=== PATIENT | male | born 1995 | race Caucasian/White ===

== ENCOUNTER 2017-03-22 01:14 | Emergency (ER) | payer SELFPAY ==
[2017-03-22] MEDS ORDERED: diphenhydrAMINE 50 MG/ML SDV IVPUSH ONE (01:21)
[2017-03-22] MEDS ORDERED: EPINEPHrine 1 MG/ML SDV IM ONE (01:21)
[2017-03-22] MEDS ORDERED: methylPREDNISolone Sodium Succinate 125 MG/2 ML SDV IVPUSH ONE (01:22)
[2017-03-22] MEDS: Sodium Chloride 0.9% 10 ML Syringe FLUSH PRN ×3 (01:36→01:41)
--- NOTE | 2017-03-22 01:40 | EDM.PDOC ---
ED HPI GENERAL MEDICAL PROBLEM - General Chief Complaint: Allergic Reaction Stated Complaint: REACTION Time Seen by Provider: 03/22/17 01:16 Source of Information: Reports: Patient, RN Notes Reviewed History Limitations: Reports: No Limitations - History of Present Illness INITIAL COMMENTS - FREE TEXT/NARRATIVE: Brought in by sister Chief complaint Facial swelling and itching, allergic reaction History of present illness 21-year-old male had sudden onset of itchy skin swelling of the face shortly after eating daily fruit, for the first time over half an hour prior to arrival. Mild cough, no shortness of breath no chest pain Itching of the skin especially near the axilla. Swelling of the face Not short of breath no fever no abdominal pain No recent illness or infection. - Related Data Allergies Allergy/AdvReac Type Severity Reaction Status Date / Time cantaloupe Allergy Swelling Uncoded 03/22/17 01:24 Home Meds: Home Meds Prednisone [IJD: predniSONE] 20 mg PO BID #10 tab 03/22/17 [Rx] Past Medical History Respiratory History: Reports: Asthma, Pneumothorax Gastrointestinal History: Reports: Other (See Below) Other Gastrointestinal History: Bleeding ulcer. bruised liver Musculoskeletal History: Reports: Fracture, Other (See Below) Other Musculoskeletal History: acl tear. ribs Neurological History: Reports: Seizure Psychiatric History: Reports: Anxiety, Depression, Learning Disability - Infectious Disease History Infectious Disease History: Reports: Chicken Pox - Past Surgical History Musculoskeletal Surgical History: Reports: Arthroscopic Knee Social & Family History - Tobacco Use Years of Tobacco use: 5 Used Tobacco, but Quit: No Second Hand Smoke Exposure: No - Alcohol Use Days Per Week of Alcohol Use: 0 - Recreational Drug Use Recreational Drug Use: No ED ROS ALLERGIC REACTION - Review of Systems Review Of Systems: See Below Constitutional: Reports: Malaise. Denies: Fever, Chills, Diaphoresis HEENT: Reports: No Symptoms Respiratory: Reports: No Symptoms Cardiovascular: Reports: No Symptoms Endocrine: Reports: No Symptoms GI/Abdominal: Reports: No Symptoms : Reports: No Symptoms Musculoskeletal: Reports: No Symptoms Skin: Reports: Urticaria (Hives of the trunk, scattered), Other (Facial edema cheeks and eyelids) Neurological: Reports: No Symptoms Psychiatric: Reports: No Symptoms Hematologic/Lymphatic: Reports: No Symptoms Immunologic: Reports: Food Allergy, Other (Swelling of the eyelids oriented chin with edema) ED EXAM GENERAL NO PERIP PULSE - Physical Exam Exam: See Below Exam Limited By: No Limitations General Appearance: Alert, Anxious, Mild Distress Eye Exam: Bilateral Eye: Abnormal EOM, Abnormal Pupil, EOMI, Normal Inspection Ears: Normal External Exam, Normal Canal, Hearing Grossly Normal, Normal TMs Nose: Normal Inspection, Normal Mucosa Throat/Mouth: Normal Inspection, Normal Lips, Normal Oropharynx, Normal Voice Head: Atraumatic Neck: Normal Inspection, Supple, Non-Tender Respiratory/Chest: No Respiratory Distress, Lungs Clear Cardiovascular: Normal Peripheral Pulses, Regular Rate, Rhythm GI/Abdominal: Normal Bowel Sounds, Soft, Non-Tender, No Organomegaly Back Exam: Normal Inspection Extremities: Normal Inspection, Normal Range of Motion, Non-Tender Neurological: Alert, Oriented, No Motor/Sensory Deficits Psychiatric: Normal Affect, Normal Mood Skin Exam: Warm, Dry, Normal Color, Other (A few scattered urticaria on the trunk) Course - Vital Signs Last Recorded V/S: Last Vital Signs Temp 36.3 C 03/22/17 01:18 Pulse 62 03/22/17 01:37 Resp 16 03/22/17 01:37 BP 108/64 03/22/17 01:37 Pulse Ox 98 03/22/17 01:37 - Orders/Labs/Meds Orders: Active Orders 24 hr Category Date Time Status Sodium Chloride 0.9% [Saline Flush] Med 03/22/17 01:21 Active 10 ml FLUSH ASDIRECTED PRN Saline Lock Insert [OM.PC] Stat Oth 03/22/17 01:21 Ordered Medication Orders Sodium Chloride (Saline Flush) 10 ml FLUSH ASDIRECTED PRN PRN Reason: Keep Vein Open Last Admin: 03/22/17 01:41 Dose: 10 ml Admin: 03/22/17 01:39 Dose: 10 ml Admin: 03/22/17 01:36 Dose: 10 ml Meds: Medications Generic Name Dose Route Start Last Admin Trade Name Freq PRN Reason Stop Dose Admin Sodium Chloride 10 ml 03/22/17 01:21 03/22/17 01:41 Saline Flush FLUSH 10 ml ASDIRECTED PRN Administration Keep Vein Open Discontinued Medications Generic Name Dose Route Start Last Admin Trade Name Freq PRN Reason Stop Dose Admin Diphenhydramine HCl 50 mg 03/22/17 01:21 03/22/17 01:38 Benadryl IVPUSH 03/22/17 01:22 50 mg ONETIME ONE Administration Epinephrine HCl 0.3 mg 03/22/17 01:21 03/22/17 01:37 Adrenalin 1:1000 IM 03/22/17 01:22 0.3 mg ONETIME ONE Administration Methylprednisolone Sodium Succinate 125 mg 03/22/17 01:22 03/22/17 01:40 Solu-Medrol IVPUSH 03/22/17 01:23 125 mg ONETIME ONE Administration - Re-Assessments/Exams Free Text/Narrative Re-Assessment/Exam: 03/22/17 01:40 21-year-old male with fairly sudden onset of facial swelling itching and rash half hour after eating kiwi at home Epinephrine 0.3 mg IM Saline lock, Benadryl 50 mg IV and Solu-Medrol 125 mg IV 03/22/17 02:43 02.30 Much improved, decreased swelling and itching has resolved Prednisone 20 mg twice a day for 5 days Loratadine 10 mg daily for 5 days and Benadryl/diphenhydramine 50 mg 4 times a day when necessary Return if worsening, see instructions below Departure - Departure Time of Disposition: 02:37 Disposition: Home, Self-Care 01 Condition: Good Clinical Impression: Acute allergic reaction Qualifiers: Encounter type: initial encounter Qualified Code(s): T78.40XA - Allergy, unspecified, initial encounter - Discharge Information Prescriptions: Prednisone [IJD: predniSONE] 20 mg PO BID #10 tab Instructions: Allergies Referrals: PCP,None [Primary Care Provider] - Forms: ED Department Discharge Additional Instructions: Allergic reaction to kiwi fruit Avoid consuming this route in the future In addition to prednisone which is prescribed, it is also recommended that you take loratadine/Claritin 10 mg once daily for 5 days and in addition Benadryl 50 mg up to 4 times daily as needed for itching or rash. Return to emergency if you have shortness of breath, wheezing, fever, vomiting or bad abdominal pain, trouble speaking or difficulty swallowing. - My Orders Last 24 Hours: My Active Orders 03/22/17 01:21 Sodium Chloride 0.9% [Saline Flush] 10 ml FLUSH ASDIRECTED PRN Saline Lock Insert [OM.PC] Stat - Assessment/Plan Last 24 Hours: My Active Orders 03/22/17 01:21 Sodium Chloride 0.9% [Saline Flush] 10 ml FLUSH ASDIRECTED PRN Saline Lock Insert [OM.PC] Stat
== END 2017-03-22 02:53 | disposition home or self-care (01) ==
LOC: JP.ED 01:14
DX: T78.1XXA Other adverse food reactions, not elsewhere classified, initial encounter (principal); L29.9 Pruritus, unspecified; X58.XXXA Exposure to other specified factors, initial encounter; Z91.018 Allergy to other foods
CPT/HCPCS: 96372; 96374; 96375; 99283; J0171; J1200; J2930; J7050

== ENCOUNTER 2018-10-09 09:07 | Emergency (ER) | payer MEDICAID ==
[2018-10-09] MEDS ORDERED: Ondansetron 4 MG/2 ML SDV IVPUSH ONE (09:39)
[2018-10-09] MEDS ORDERED: Ketorolac 30 MG/ML SDV IVPUSH ONE (09:39)
--- NOTE | 2018-10-09 09:43 | EDM.PDOC ---
ED HPI GENERAL MEDICAL PROBLEM - General Chief Complaint: Drug or Alcohol Abuse Stated Complaint: VOMITING, AND KIDNEY PAIN Time Seen by Provider: 10/09/18 09:30 Source of Information: Reports: Patient, Family History Limitations: Reports: No Limitations - History of Present Illness INITIAL COMMENTS - FREE TEXT/NARRATIVE: 22-year-old male was up fairly late last night at the bar drinking shots of hard liquor, started vomiting at 3 AM. For the last 6 hours he's had steady emesis, no hematemesis but he has developed back pain and weakness. He feels awful. No fevers or chills. He's also now developed "kidney pain" bilaterally with spasms and pain in his back. He is able to ambulate without difficulty. He was also recently doing "other drugs". Onset: Unknown/Unsure Associated Symptoms: Reports: Chest Pain (Has had some right-sided chest discomfort for the last 3 days), Loss of Appetite, Malaise, Nausea/Vomiting, Weakness. Denies: Confusion, Fever/Chills, Shortness of Breath Bilateral Flank Pain Score (Numeric/FACES): 8 - Related Data Allergies Allergy/AdvReac Type Severity Reaction Status Date / Time kiwi Allergy Swollen Verified 03/22/17 02:48 Eyes cantaloupe Allergy Swelling Uncoded 03/22/17 01:24 Home Meds: Home Meds NK [No Known Home Meds] 10/09/18 [History] Past Medical History Respiratory History: Reports: Asthma, Pneumothorax Gastrointestinal History: Reports: Other (See Below) Other Gastrointestinal History: Bleeding ulcer. bruised liver laceration Musculoskeletal History: Reports: Fracture, Other (See Below) Other Musculoskeletal History: acl tear. ribs Neurological History: Reports: Seizure Psychiatric History: Reports: Anxiety, Depression, Learning Disability - Infectious Disease History Infectious Disease History: Reports: Chicken Pox - Past Surgical History Musculoskeletal Surgical History: Reports: Arthroscopic Knee Social & Family History - Tobacco Use Years of Tobacco use: 10 Packs/Tins Daily: 1 - Caffeine Use Caffeine Use: Reports: Energy Drinks - Alcohol Use Days Per Week of Alcohol Use: 7 Number of Drinks Per Day: 2 Total Drinks Per Week: 14 - Recreational Drug Use Recreational Drug Use: No ED ROS GENERAL - Review of Systems Review Of Systems: See Below Constitutional: Reports: Malaise, Decreased Appetite. Denies: Fever, Chills HEENT: Reports: No Symptoms Respiratory: Denies: Shortness of Breath Cardiovascular: Reports: Chest Pain (Right-sided, intermittent) GI/Abdominal: Reports: Nausea, Vomiting. Denies: Abdominal Pain Skin: Reports: No Symptoms Neurological: Reports: Headache ED EXAM, GENERAL - Physical Exam Exam: See Below Exam Limited By: No Limitations General Appearance: Alert, No Apparent Distress (Looks ill but not distressed) Eye Exam: Bilateral Eye: Normal Inspection (No jaundice) Head: Atraumatic Respiratory/Chest: No Respiratory Distress, Lungs Clear Cardiovascular: Regular Rate, Rhythm. No: Tachycardia GI/Abdominal: Non-Tender (No significant palpation tenderness or distention), Abnormal Bowel Sounds (Bowel sounds are hypoactive) Extremities: Normal Inspection Neurological: Alert, Oriented Psychiatric: Flat Affect Skin Exam: Warm, Dry Course - Vital Signs Last Recorded V/S: Last Vital Signs Temp 98.9 F 10/09/18 09:28 Pulse 94 10/09/18 09:28 Resp 16 10/09/18 09:28 BP 141/94 H 10/09/18 09:28 Pulse Ox 97 10/09/18 09:28 - Orders/Labs/Meds Labs: Laboratory Tests 10/09/18 10/09/18 10/09/18 Range/Units 09:48 09:48 09:48 WBC 9.6 (4.5-11.0) K/uL RBC 5.24 (4.30-5.90) M/uL Hgb 16.5 H (12.0-15.0) g/dL Hct 46.7 (40.0-54.0) % MCV 89 (80-98) fL MCH 32 H (27-31) pg MCHC 35 (32-36) % Plt Count 256 (150-400) K/uL Neut % (Auto) 82 H (36-66) % Lymph % (Auto) 2 L (24-44) % [place] % (Auto) 16 H (2-6) % Eos % (Auto) 0 L (2-4) % Baso % (Auto) 0 (0-1) % Sodium 141 (140-148) mmol/L Potassium 3.8 (3.6-5.2) mmol/L Chloride 103 (100-108) mmol/L Carbon Dioxide 25 (21-32) mmol/L Anion Gap 12.7 (5.0-14.0) mmol/L BUN 16 (7-18) mg/dL Creatinine 0.9 (0.8-1.3) mg/dL Est Cr Clr Drug Dosing 128.74 mL/min Estimated GFR (MDRD) > 60 (>60) Glucose 152 H (74-106) mg/dL Calcium 9.0 (8.5-10.1) mg/dL Ethyl Alcohol < 3 mg/dL Meds: Medications Discontinued Medications Generic Name Dose Route Start Last Admin Trade Name Castro PRN Reason Stop Dose Admin Sodium Chloride 1,000 mls @ 1,999 mls/hr 10/09/18 09:45 10/09/18 09:42 Normal Saline IV 1,999 mls/hr ASDIRECTED SHERLY Administration Ketorolac Tromethamine 30 mg 10/09/18 09:39 10/09/18 09:47 Toradol IVPUSH 10/09/18 09:40 30 mg ONETIME ONE Administration Ondansetron HCl 4 mg 10/09/18 09:39 10/09/18 09:46 Zofran IVPUSH 10/09/18 09:40 4 mg ONETIME ONE Administration - Re-Assessments/Exams Free Text/Narrative Re-Assessment/Exam: 10/09/18 09:43 An IV was placed and the patient will be given 1 L of normal saline bolus along with 4 mg of IV Zofran and 30 of Toradol. CBC BMP and EtOH UA and urine drug screen will be obtained. The patient was unable to urinate. 10/09/18 11:27 After the medications the patient rested quietly while getting his IV fluids. CBC and BMP returned normal, EtOH was 0. He was still unable to give us a urine but it was discontinued because it wasn't necessary. Departure - Departure Time of Disposition: 12:23 Disposition: Home, Self-Care 01 Clinical Impression: Dehydration, mild Nausea & vomiting Qualifiers: Vomiting type: unspecified Vomiting Intractability: non-intractable Qualified Code(s): R11.2 - Nausea with vomiting, unspecified - Discharge Information Instructions: Dehydration, Adult, [id number] Referrals: PCP,None [Primary Care Provider] - Forms: ED Department Discharge Care Plan Goals: Rest, continue with fluids and increase activity and diet as tolerated.
[2018-10-09] MEDS ORDERED: Sodium Chloride 0.9% 1,000 ML IV SCH (09:45)
== END 2018-10-09 12:10 | disposition home or self-care (01) ==
LOC: JP.ED 09:07
DX: E86.0 Dehydration (principal); R11.2 Nausea with vomiting, unspecified; R07.9 Chest pain, unspecified; Z91.018 Allergy to other foods
CPT/HCPCS: 36415; 80048; 85025; 96374; 96375; 99284; G0480; J1885; J2405; J7030

== ENCOUNTER 2018-11-25 03:09 | Emergency (ER) | payer MEDICAID ==
[2018-11-25] MEDS: Sodium Chloride 0.9% 10 ML Syringe FLUSH PRN ×2 (04:33→06:05)
[2018-11-25] MEDS ORDERED: Sodium Chloride 0.9% 1,000 ML IV ONE ×2 (05:58→10:34)
--- NOTE | 2018-11-25 08:10 | EDM.PDOC ---
<Robbie Contreras - Last Filed: 11/25/18 08:05> ED HPI GENERAL MEDICAL PROBLEM - General Chief Complaint: General Stated Complaint: SEIZURE Time Seen by Provider: 11/25/18 03:50 Source of Information: Reports: Family History Limitations: Reports: Intoxication - History of Present Illness INITIAL COMMENTS - FREE TEXT/NARRATIVE: This young man arrived by EMS for possibly a seizure versus drug overdose. Mom found him down stairs lying on the floor unresponsive. At one time she said she seemed like he was shaking a little bit. He's had seizures in the past but has never been on any kind of medication for them. He is known he has been drinking and is known to use. Is different drugs.. - Related Data Allergies Allergy/AdvReac Type Severity Reaction Status Date / Time kiwi Allergy Swollen Verified 03/22/17 02:48 Eyes cantaloupe Allergy Swelling Uncoded 03/22/17 01:24 Home Meds: Home Meds NK [No Known Home Meds] 10/09/18 [History] Past Medical History Respiratory History: Reports: Asthma, Pneumothorax Gastrointestinal History: Reports: Other (See Below) Other Gastrointestinal History: Bleeding ulcer. bruised liver laceration Musculoskeletal History: Reports: Fracture, Other (See Below) Other Musculoskeletal History: acl tear. ribs Neurological History: Reports: Seizure Psychiatric History: Reports: Anxiety, Depression, Learning Disability - Infectious Disease History Infectious Disease History: Reports: Chicken Pox - Past Surgical History Musculoskeletal Surgical History: Reports: Arthroscopic Knee Social & Family History - Family History Family Medical History: Noncontributory - Tobacco Use Smoking Status *Q: Current Every Day Smoker Years of Tobacco use: 7 Packs/Tins Daily: 1 - Caffeine Use Caffeine Use: Reports: None - Alcohol Use Days Per Week of Alcohol Use: 7 Number of Drinks Per Day: 0 Total Drinks Per Week: 0 - Recreational Drug Use Recreational Drug Use: Yes Drug Use in Last 12 Months: Yes Recreational Drug Type: Reports: Marijuana/Hashish Recreational Drug Use Frequency: Daily ED ROS GENERAL - Review of Systems Review Of Systems: Unable To Obtain ED EXAM, GENERAL - Physical Exam Exam: See Below Exam Limited By: Altered Mental Status General Appearance: Obtunded (This man is obtunded does not respond to voice but does respond to painful stimuli. He has a good gag reflex) Eye Exam: Bilateral Eye: Abnormal Pupil (Pupils pinpoint bilaterally), Conjunctival Injection (Consistent with marijuana use) Nose: Normal Inspection Throat/Mouth: Normal Oropharynx Head: Atraumatic Neck: Normal Inspection Respiratory/Chest: Lungs Clear Cardiovascular: Regular Rate, Rhythm, No Murmur GI/Abdominal: Soft Extremities: Normal Inspection Neurological: Unresponsive (Very minimal response to painful stimuli) Skin Exam: Warm, Dry, Intact Course - Vital Signs Last Recorded V/S: Last Vital Signs Temp 36.3 C 11/25/18 05:01 Pulse 114 H 11/25/18 10:09 Resp 15 11/25/18 10:09 BP 87/52 L 11/25/18 10:09 Pulse Ox 99 11/25/18 06:09 - Orders/Labs/Meds Orders: Active Orders 24 hr Category Date Time Status EKG Documentation Completion [RC] ASDIRECTED Care 11/25/18 05:32 Active Sodium Chloride 0.9% [Saline Flush] Med 11/25/18 03:50 Active 10 ml FLUSH ASDIRECTED PRN Saline Lock Insert [OM.PC] Urgent Oth 11/25/18 03:50 Ordered EKG 12 Lead [EK] Urgent Ther 11/25/18 05:32 Ordered Medication Orders Sodium Chloride (Saline Flush) 10 ml FLUSH ASDIRECTED PRN PRN Reason: Keep Vein Open Last Admin: 11/25/18 06:05 Dose: 10 ml Admin: 11/25/18 04:33 Dose: 10 ml Labs: Laboratory Tests 11/25/18 11/25/18 11/25/18 Range/Units 03:55 03:55 03:55 WBC 13.3 H (4.5-11.0) K/uL RBC 5.05 (4.30-5.90) M/uL Hgb 15.8 H (12.0-15.0) g/dL Hct 46.2 (40.0-54.0) % MCV 92 (80-98) fL MCH 31 (27-31) pg MCHC 34 (32-36) % Plt Count 271 (150-400) K/uL Neut % (Auto) 80 H (36-66) % Lymph % (Auto) 12 L (24-44) % [place] % (Auto) 8 H (2-6) % Eos % (Auto) 1 L (2-4) % Baso % (Auto) 0 (0-1) % Sodium 144 (140-148) mmol/L Potassium 3.8 (3.6-5.2) mmol/L Chloride 106 (100-108) mmol/L Carbon Dioxide 25 (21-32) mmol/L Anion Gap 12.9 (5.0-14.0) mmol/L BUN 7 D (7-18) mg/dL Creatinine 0.8 (0.8-1.3) mg/dL Est Cr Clr Drug Dosing 148.68 mL/min Estimated GFR (MDRD) > 60 (>60) Glucose 102 (74-106) mg/dL Calcium 8.8 (8.5-10.1) mg/dL Total Bilirubin 0.4 (0.2-1.0) mg/dL AST 20 (15-37) U/L ALT 27 (12-78) U/L Alkaline Phosphatase 85 (46-116) U/L Total Protein 7.0 (6.4-8.2) g/dL Albumin 4.0 (3.4-5.0) g/dL Globulin 3.0 (2.3-3.5) g/dL Albumin/Globulin Ratio 1.3 (1.2-2.2) Urine Color Urine Appearance Urine pH (4.5-8.0) Ur Specific [place] (1.008-1.030) Urine Protein (NEGATIVE) mg/dL Urine Glucose (UA) (NEGATIVE) mg/dL Urine Ketones (NEGATIVE) mg/dL Urine Occult Blood (NEGATIVE) Urine Nitrite (NEGAITVE) Urine Bilirubin (NEGATIVE) Urine Urobilinogen (NORMAL) mg/dL Ur Leukocyte Esterase (NEGATIVE) Urine RBC (0-5) Urine WBC (0-5) Ur Epithelial Cells Amorphous Sediment Urine Bacteria Urine Mucus Urine Opiates Screen (NEGATIVE) Ur Oxycodone Screen (NEGATIVE) Urine Methadone Screen (NEGATIVE) Ur Propoxyphene Screen (NEGATIVE) Ur Barbiturates Screen (NEGATIVE) Ur Tricyclics Screen (NEGATIVE) Ur Phencyclidine Scrn (NEGATIVE) Ur Amphetamine Screen (NEGATIVE) U Methamphetamines Scrn (NEGATIVE) Urine MDMA Screen (NEGATIVE) U Benzodiazepines Scrn (NEGATIVE) U Cocaine Metab Screen (NEGATIVE) U Marijuana (THC) Screen (NEGATIVE) Ethyl Alcohol 53 mg/dL 11/25/18 11/25/18 Range/Units 04:32 04:32 WBC (4.5-11.0) K/uL RBC (4.30-5.90) M/uL Hgb (12.0-15.0) g/dL Hct (40.0-54.0) % MCV (80-98) fL MCH (27-31) pg MCHC (32-36) % Plt Count (150-400) K/uL Neut % (Auto) (36-66) % Lymph % (Auto) (24-44) % [place] % (Auto) (2-6) % Eos % (Auto) (2-4) % Baso % (Auto) (0-1) % Sodium (140-148) mmol/L Potassium (3.6-5.2) mmol/L Chloride (100-108) mmol/L Carbon Dioxide (21-32) mmol/L Anion Gap (5.0-14.0) mmol/L BUN (7-18) mg/dL Creatinine (0.8-1.3) mg/dL Est Cr Clr Drug Dosing mL/min Estimated GFR (MDRD) (>60) Glucose (74-106) mg/dL Calcium (8.5-10.1) mg/dL Total Bilirubin (0.2-1.0) mg/dL AST (15-37) U/L ALT (12-78) U/L Alkaline Phosphatase (46-116) U/L Total Protein (6.4-8.2) g/dL Albumin (3.4-5.0) g/dL Globulin (2.3-3.5) g/dL Albumin/Globulin Ratio (1.2-2.2) Urine Color Yellow Urine Appearance Clear Urine pH 6.0 (4.5-8.0) Ur Specific [place] 1.010 (1.008-1.030) Urine Protein Negative (NEGATIVE) mg/dL Urine Glucose (UA) Normal (NEGATIVE) mg/dL Urine Ketones Negative (NEGATIVE) mg/dL Urine Occult Blood Negative (NEGATIVE) Urine Nitrite Negative (NEGAITVE) Urine Bilirubin Negative (NEGATIVE) Urine Urobilinogen Normal (NORMAL) mg/dL Ur Leukocyte Esterase Negative (NEGATIVE) Urine RBC 0-5 (0-5) Urine WBC 0-5 (0-5) Ur Epithelial Cells Moderate Amorphous Sediment Not seen Urine Bacteria Few Urine Mucus Not seen Urine Opiates Screen Negative (NEGATIVE) Ur Oxycodone Screen Negative (NEGATIVE) Urine Methadone Screen Negative (NEGATIVE) Ur Propoxyphene Screen Negative (NEGATIVE) Ur Barbiturates Screen Negative (NEGATIVE) Ur Tricyclics Screen Presumptive positive H (NEGATIVE) Ur Phencyclidine Scrn Negative (NEGATIVE) Ur Amphetamine Screen Negative (NEGATIVE) U Methamphetamines Scrn Negative (NEGATIVE) Urine MDMA Screen Negative (NEGATIVE) U Benzodiazepines Scrn Presumptive positive H (NEGATIVE) U Cocaine Metab Screen Negative (NEGATIVE) U Marijuana (THC) Screen Presumptive positive H (NEGATIVE) Ethyl Alcohol mg/dL Meds: Medications Generic Name Dose Route Start Last Admin Trade Name Freq PRN Reason Stop Dose Admin Sodium Chloride 10 ml 11/25/18 03:50 11/25/18 06:05 Saline Flush FLUSH 10 ml ASDIRECTED PRN Administration Keep Vein Open Discontinued Medications Generic Name Dose Route Start Last Admin Trade Name Freq PRN Reason Stop Dose Admin Sodium Chloride 1,000 mls @ 999 mls/hr 11/25/18 05:58 11/25/18 06:08 Normal Saline IV 11/25/18 06:58 999 mls/hr .BOLUS ONE Administration Sodium Chloride 1,000 mls @ 1,000 mls/hr 11/25/18 10:34 11/25/18 10:38 Normal Saline IV 11/25/18 11:33 1,000 mls/hr .BOLUS ONE Administration - Re-Assessments/Exams Free Text/Narrative Re-Assessment/Exam: 11/25/18 08:07 Patient had try cyclic 70 urine so an EKG was done which showed normal sinus rhythm at 94 bpm normal QRS normal ST and T waves The patient has been observed he's been rechecked from time to time he has gradually become more alert. At 8 AM he still seems to be unresponsive but he does respond to painful stimuli and when I take a cold wet ice filled glove and drag it across his sides and back he sits up in bed and curses then goes back to sleep 11/25/18 08:09 Plan will be to watch him for a couple more hours until he is more alert. Dr. Hagen is assuming care at this time Departure - Departure Disposition: Home, Self-Care 01 Clinical Impression: Drug use, Unresponsive episode, Alcohol intoxication - Discharge Information Instructions: Alcohol Use Disorder, Alcohol Intoxication, Substance Abuse Testing, Alcohol Intoxication, [id number] Referrals: PCP,None [Primary Care Provider] - Forms: ED Department Discharge Additional Instructions: Advised to cut down his drinking habit. Do not use drugs, rest and stay well- hydrated, close follow-up with PCP, come back if symptom worsen <Vikram Mcneal - Last Filed: 11/25/18 12:54> Course - Re-Assessments/Exams Free Text/Narrative Re-Assessment/Exam: 11/25/18 12:47 resumed patient care from Dr. Contreras at time of shift exchange. Patient continued to be stable. Now he is fully awake, alert and oriented. Came back to normal. Feeling well. This most likely benzos overdose. Although he is denying using benzos last night. He stated that he was just drinking alcohol and when I asked him to use any drugs he said may be and I asked him to use benzos history no, I'm not sure if. Again likely benzos. Advised to cut down his drinking habit. Do not use drugs, rest and stay well-hydrated, close follow-up with PCP, come back if symptom worsen. Patient agrees with the plan. Stable for discharge home with his mother. 11/25/18 12:51 Departure - Departure Time of Disposition: 12:52 Condition: Good - Assessment/Plan Assessment:: Advised to cut down his drinking habit. Do not use drugs, rest and stay well- hydrated, close follow-up with PCP, come back if symptom worsen
== END 2018-11-25 13:00 | disposition home or self-care (01) ==
LOC: JP.ED 03:09
DX: F10.129 Alcohol abuse with intoxication, unspecified (principal); F19.90 Other psychoactive substance use, unspecified, uncomplicated; Z91.018 Allergy to other foods; Y90.2 Blood alcohol level of 40-59 mg/100 ml
CPT/HCPCS: 36415; 80053; 80305; 81001; 85025; 93005; 96360; 96361; 99284; G0480; J7030

== ENCOUNTER 2021-06-18 19:28 | Emergency (ER) | payer BC, MEDICAID | END 2021-06-18 21:18 | disposition home or self-care (01) | LOC: JP.ED 19:28 | DX: K62.89 Other specified diseases of anus and rectum (principal); Z91.018 Allergy to other foods; Z88.8 Allergy status to other drugs, medicaments and biological substances; Z72.0 Tobacco use | CPT/HCPCS: 36415; 74176; 80048; 85025; 99283; 99284-25 ==